=== PATIENT | male | born 1955 | race Caucasian/White ===

== ENCOUNTER 2017-03-29 14:02 | Outpatient (CLI) | payer OTHER ==
--- NOTE | 2017-03-29 18:10 | MRI ---
LUMBAR SPINE MRI NONCONTRAST 03/29/17 COMPARISON: No prior comparison. INDICATION: Radiculopathy, low back pain. FINDINGS: Conus medullaris terminates at the T12-L1 level. There is prominent Modic type I and II end plate de generative signal alteration of the L4 and L5 segments with prominent end plate irregularity and de generative disc space narrowing. There is intrinsic T2 hyperintensity of the L5-S1 disc space. No ad jacent end plate edema. Cyst of the right kidney is incidentally imaged. 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 L5-S1: As described above, there is increased T2 signal of the disc space. There is no high grade ce ntral canal stenosis. Neural foramina are patent. L4-5: Broad based disc osteophyte complex results in mild to moderate central canal stenosis. There is mild to moderate bilateral neural foraminal narrowing. L3-4: Mild to moderate central canal stenosis results in broad based disc bulge. No high grade luanne inal stenosis. L2-3: No significant central canal or foraminal compromise. L1-2: No significant central canal or foraminal compromise. Incidental note of heterogeneity of the imaged prostate region with associated abutment of the bladd er base which may relate to associated nodular hyperplasia of the prostate gland. There is prominenc e of the seminal vessels. IMPRESSION: 1. Nonspecific T2 signal of the L5-S1 disc space. There is no associated end plate disruption o r marrow edema. The possibility of early discitis not excluded. Correlate clinically and if necessar y, imaging followup may be obtained. 2. Multilevel degenerative change at the lumbar spine superimposed on mildly congenitally narro wed AP diameter of the vertebral canal. Additional details are described above. POS: [facility]
== END 2017-03-29 14:03 | disposition home or self-care (01) ==
LOC: MRI 14:02
PROVIDERS: ATTEND Orthopaedic Surgery
DX: M47.26 Other spondylosis with radiculopathy, lumbar region (principal); M54.5 Low back pain
CPT/HCPCS: 72148